=== PATIENT | male | born 1945 | race Two or more races ===

== ENCOUNTER 2020-02-01 12:30 | Emergency (ER) | payer MEDICARE, OTHER ==
[~2020-02-01] VITALS: Ht 167.6 cm; Wt 50.5 kg
[2020-02-01 13:40] LABS: BASOPHILS # (AUTO) 0.03 x10^3/uL (0-0.1); BASOPHILS % (AUTO) 0 % (0-1); EOSINOPHILS # (AUTO) 0.09 x10^3/uL (0-0.4); EOSINOPHILS % (AUTO) 1 % (1-7); LYMPHOCYTES # (AUTO) 0.87 x10^3/uL (1-3.4); LYMPHOCYTES % (AUTO) 9 % (22-44); MD NO; MEAN CORPUSCULAR HEMOGLOBIN 30.5 pg (27.5-34.5); MEAN CORPUSCULAR VOLUME 95.4 fL (81-97); MONOCYTES # (AUTO) 0.39 x10^3/uL (0.2-0.8); MONOCYTES % (AUTO) 4 % (2-9); NEUTROPHILS % (AUTO) 86 % (42-75); PLATELET COUNT 267 x10^3/uL (130-400); RED BLOOD COUNT 5.22 x10^6/uL (4.38-5.82); RED CELL DISTRIBUTION WIDTH 14.3 % (9.4-14.8)
[2020-02-01 13:50] LABS: ALBUMIN 4.1 g/dL (3.4-5.0); ANION GAP 6 mmol/L (5-15); CALCIUM 8.9 mg/dL (8.5-10.1); CHLORIDE 106 mmol/L (98-107); CREATININE 0.63 mg/dL (0.7-1.3)
[2020-02-01 14:58] LABS: MICROSCOPIC INDICATED
[2020-02-01 15:21] VITALS: BP 117/71
[2020-02-01] MEDS ORDERED: PHENAZOPYRIDINE 200 MG TABLET ONE (15:27)
[2020-02-01] MEDS ORDERED: HYDROcodone/APAP 5/325 TABLET ONE (15:27)
[2020-02-01] MEDS ORDERED: HYDROcodone/APAP 5/325 TABLET PO ONE (15:30)
[2020-02-01] MEDS ORDERED: PHENAZOPYRIDINE 200 MG TABLET PO ONE (15:30)
== END 2020-02-01 16:10 | disposition home or self-care (01) ==
LOC: ED 13:47
DX: R31.0 Gross hematuria (principal); R33.8 Other retention of urine
CPT/HCPCS: 36415; 51702; 80048; 81001; 82040; 85025; 99284

== ENCOUNTER 2020-02-02 15:02 | Emergency (ER) | payer MEDICARE ==
[~2020-02-02] VITALS: Ht 172.7 cm; Wt 49.4 kg
[2020-02-02] MEDS ORDERED: TOLTERODINE 2MG TABLET PO ONE (16:00)
--- NOTE | 2020-02-02 16:22 | NUR ---
Osorio changed per policy, draining blood tinged urine.
[2020-02-02 17:21] VITALS: BP 119/74
--- NOTE | 2020-02-02 17:22 | NUR ---
DISCHARGE INSTRUCTIONS REVIEWED
== END 2020-02-02 17:47 | disposition home or self-care (01) ==
LOC: ED 16:31
DX: R33.9 Retention of urine, unspecified (principal); T83.098D Other mechanical complication of other urinary catheter, subsequent encounter
CPT/HCPCS: 51702; 99284